=== PATIENT | female | born 1970 | race Caucasian/White ===

== ENCOUNTER 2017-11-10 10:58 | Emergency (ER) | payer SELFPAY ==
[2017-11-10 11:10] VITALS: BP 156/89
--- NOTE | 2017-11-10 11:19 | ED Physician Documentation ---
General Adult - HISTORIAN Historian: patient - HPI Stated Complaint: Possibe Insect Bite Chief Complaint: General Adult Onset: days ago (4) Timing: worse Severity: mild Further Comments: yes (Pt is a 46 yo female with a lesion on her L leg, possibly from an insect bite. Area is about 3 cm diameter, erythematous and tender with slight induration. Pt has been using Neosporin on this, but it has not seemed to help. No fever or systemic sx.) - ROS CONST: no problems EYES/ENT: none CVS/RESP: none GI/: none MS/SKIN/LYMPH: other (lesion L leg) - PAST HX Past History: none Allergies/Adverse Reactions: Allergies Allergy/AdvReac Type Severity Reaction Status Date / Time No Known Allergies Allergy Unverified 11/10/17 11:07 Home Medications: Ambulatory Orders Medication Instructions Recorded Penicillin V Potassium [Pen V K] 500 mg PO Q8H #30 tablet 11/10/17 - SOCIAL HX Smoking History: cigarettes - FAMILY HX Family History: No - VITAL SIGNS Vital Signs: Vital Signs Temp Pulse Resp BP Pulse Ox 96 H 18 156/89 100 11/10/17 10:58 11/10/17 10:58 11/10/17 10:58 11/10/17 10:58 - REVIEWED ASSESSMENTS Nursing Assessment Reviewed: Yes Vitals Reviewed: Yes Progress - Progress Progress: Rx Penicillin VK 500 mg po tid x 10 days. General Adult Physical Exam - PHYSICAL EXAM GENERAL APPEARANCE: no distress NECK: normal inspection RESPIRATORY: no resp distress, chest non-tender, breath sounds normal CVS: reg rate & rhythm, heart sounds normal BACK: normal inspection SKIN: other (3 cm erythematous lesion L anterior leg with slight injuration. Lesion is tender with slight darkening in center. ? spider bite ) EXTREMITIES: normal range of motion, no evidence of injury NEURO: oriented X3, motor nml, sensation nml Discharge Clincal Impression: lesion L leg, possible insect bite Prescriptions: Penicillin V Potassium [Pen V K] 500 mg PO Q8H #30 tablet Referrals: Primary Doctor,No [Primary Care Provider] - Condition: Good Disposition: 01 HOME, SELF-CARE Decision to Admit: NO Decision Time: 11:22
[2017-11-10] MEDS ORDERED: DIPH,PERTUSS(ACELL),TET VAC/PF 0.5 ML DISP.SYRIN IM ONE (11:27)
== END 2017-11-10 11:38 | disposition home or self-care (01) ==
LOC: ED 10:58
DX: L98.9 Disorder of the skin and subcutaneous tissue, unspecified (principal)
CPT/HCPCS: 90471; 90715; 99283